=== PATIENT | male | born 1970 | race Caucasian/White ===

== ENCOUNTER 2017-11-27 15:36 | Emergency (ER) | payer OTHER ==
[2017-11-27 16:24] LABS: Absolute Lymphocytes (CBC) 1.9 K/uL (0.7-4.9); Absolute Monocytes 0.7 K/uL (0.1-1.3); Absolute Neutrophil 5.7 K/uL (1.8-8.0); Basophils % 1.3 % (0-1.3); Eosinophils % 3.6 % (0-4.4); Hematocrit 48.7 % (39.6-49.0); Lymphocytes % 21.8 % (15.3-44.8); MCH 30.7 pg (27.0-35.0); MCV 90.6 fL (80-100); MPV 8.6 fL (7.6-11.3); Monocytes % 8.1 % (3.3-12.3); RBC Red Blood Cell Count 5.37 M/uL (4.33-5.43)
[2017-11-27 16:28] LABS: Protime INR 0.98
[2017-11-27 16:35] LABS: Potassium 4.5 mEq/L (3.6-5.0)
[2017-11-27 16:41] LABS: Albumin 4.1 g/dL (3.2-5.5); Bilirubin Direct 0.1 mg/dL (0-0.2); Bilirubin Total 0.4 mg/dL (0.3-1.2); Protein, Total 7.4 g/dL (6.0-8.3)
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
--- NOTE | 2017-11-27 21:33 | EKG ---
Test Date: 2017-11-27 Test Time: 16:56:46 Inspector Repairer: JOSE ANGEL MEASUREMENT RESULTS: Intervals: Rate: 70 NJ: 178 QRSD: 86 QT: 374 QTc: 403 [place]: P: 50 NJ: 178 QRS: 48 T: 40 INTERPRETIVE STATEMENTS: Normal sinus rhythm Normal ECG No previous ECG available for comparison Electronically Signed On 11-27-17 21:32:26 CDT by Devin Celis
== END 2017-11-27 18:04 | disposition home or self-care (01) ==
LOC: ER 15:36
DX: T63.091A Toxic effect of venom of other snake, accidental (unintentional), initial encounter (principal); Y92.89 Other specified places as the place of occurrence of the external cause
CPT/HCPCS: 36415; 80048; 80076; 82550; 85025; 85379; 85610; 93005; 99284

== ENCOUNTER 2021-04-28 09:28 | Emergency (ER) | payer OTHER, SELFPAY ==
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
[2021-04-28 12:46] VITALS: BP 142/93; TEMP 97.7; O2SAT 100
== END 2021-04-28 12:33 | disposition home or self-care (01) ==
LOC: ER 09:28
DX: S09.90XA Unspecified injury of head, initial encounter (principal); W50.0XXA Accidental hit or strike by another person, initial encounter; Y99.8 Other external cause status
CPT/HCPCS: 70450; 70486; 76377; 99283